=== PATIENT | female | born 1965 | race Caucasian/White ===

== ENCOUNTER 2020-09-27 15:05 | Emergency (ER) | payer BC ==
[~2020-09-27] VITALS: Ht 157.5 cm; Wt 104.3 kg
[~2020-09-27 15:05] MED LIST: CADUET 2.5 MG-1 EACH; COZAAR 25 MG TA25 M1; KEPPRA250 MG; LIPITOR10 MG; NORCO 5-325 TA1 EACH PO; PHENERGAN 25 MG25 M1 PO; TORADOL 10 MG T10 MG PO; ZOFRAN4 MG PO
[2020-09-27] MEDS ORDERED: NORVASC10 MG PO (15:27)
[2020-09-27] MEDS ORDERED: LEVO-T25 MCG PO (15:28)
[2020-09-27 17:53] LABS: ABSOLUTE BASOPHILS 0.1 thou/uL (0.0-0.2); ABSOLUTE EOSINOPHILS 0.3 thou/uL (0.0-0.7); ABSOLUTE LYMPHOCYTES 2.2 thou/uL (0.8-5.3); ABSOLUTE MONOCYTES 0.8 thou/uL (0.0-1.2); ABSOLUTE NEUTROPHILS 6.1 thou/uL (1.6-8.1); EOSINOPHILS 2.7 %; HEMATOCRIT 44.8 % (37.0-47.0); LYMPHOCYTES 23.3 %; MCH 31.5 pg (26.0-34.0); MCHC 33.5 g/dL (28.0-37.0); MCV 93.8 fL (80.0-100.0); MONOCYTES 8.2 %; MPV 8.4 fl. (7.2-11.1); NUCLEATED RBCS 0 /100WBC; PLATELET COUNT* 341 thou/uL (150-400); POLYS 64.8 %; RBC 4.77 mil/uL (4.20-5.00); RDW-CV 14.2 % (10.5-14.5); WBC 9.4 thou/uL (4.0-11.0)
[2020-09-27 18:03] LABS: CALCIUM 8.4 mg/dL (8.5-10.1); POTASSIUM 3.3 mmol/L (3.5-5.1)
[2020-09-27 18:08] LABS: TOTAL BILIRUBIN 0.5 mg/dL (<0.1-1.0); TOTAL PROTEIN 8.2 g/dL (6.4-8.2)
[2020-09-27] MEDS ORDERED: AMOXICILLIN 50500 MG PO (18:51)
[2020-09-27 19:36] VITALS: BP 121/60
--- NOTE | 2020-09-29 13:59 | EKG ---
[place] [address] ELECTROCARDIOGRAM REPORT Name: BETTY ESPINAL Room: [facility]#: [id number] Admission: 09/27/20 Attend Phys: Discharge: 09/27/20 Date of : 67 Date of Service: 09/27/20 173 Report #: [id number] THIS REPORT FOR: //name// [facility] ED Test Date: 2020-09-27 Test Time: 17:31:55 Pat Name: BETTY ESPINAL Department: Room: Gender: F Lead Carpenter: STUDENT : 1965 Requested By: Fany Bui Order Number: [id number] MD: Efe Batres Measurements Intervals [place] Rate: 93 P: 25 [place]: 161 QRS: -16 QRSD: 91 T: 11 QT: 360 QTc: 448 Interpretive Statements Sinus rhythm Borderline left axis deviation Delayed R wave progression over the right precordium Compared to ECG 10/21/2010 05:43:37 Delayed R wave progression over the right precordium is more notable Electronically Signed On 09-29-2020 13:58:58 CDT by Efe Batres [email or web address] <ELECTRONICALLY SIGNED> By: Efe Batres MD, FACC 09/29/20 1358 1731 1731 Efe Batres MD, FAC /EPI
== END 2020-09-27 19:38 | disposition home or self-care (01) ==
LOC: M.ERS 15:05
PROVIDERS: Nurse Practitioner Family
DX: H65.191 Other acute nonsuppurative otitis media, right ear (principal); H81.11 Benign paroxysmal vertigo, right ear; I10 Essential (primary) hypertension; E78.00 Pure hypercholesterolemia, unspecified; Z98.890 Other specified postprocedural states; Z90.49 Acquired absence of other specified parts of digestive tract; Z90.710 Acquired absence of both cervix and uterus

== ENCOUNTER 2020-10-14 12:04 | Inpatient (IN) | payer BC ==
[~2020-10-14] VITALS: Ht 157.5 cm; Wt 111.7 kg
[~2020-10-14 12:04] MED LIST changes: +AMOXICILLIN 50500 MG PO; +LEVO-T25 MCG PO; +NORVASC10 MG PO
[2020-10-14 12:07] VITALS: BP 113/65
[2020-10-14 12:54] LABS: ABSOLUTE BASOPHILS 0.1 thou/uL (0.0-0.2); ABSOLUTE EOSINOPHILS 0.1 thou/uL (0.0-0.7); ABSOLUTE LYMPHOCYTES 1.5 thou/uL (0.8-5.3); ABSOLUTE MONOCYTES 0.9 thou/uL (0.0-1.2); ABSOLUTE NEUTROPHILS 13.3 thou/uL (1.6-8.1); BASOPHILS 0.8 %; EOSINOPHILS 0.6 %; HEMATOCRIT 47.3 % (37.0-47.0); HEMOGLOBIN 14.8 gm/dL (12.0-15.0); LYMPHOCYTES 9.5 %; MCHC 31.4 g/dL (28.0-37.0); MCV 92.4 fL (80.0-100.0); MONOCYTES 5.6 %; MPV 7.8 fl. (7.2-11.1); NUCLEATED RBCS 0 /100WBC; PLATELET COUNT* 325 thou/uL (150-400); POLYS 83.5 %; RBC 5.12 mil/uL (4.20-5.00); RDW-CV 13.7 % (10.5-14.5); WBC 15.9 thou/uL (4.0-11.0)
[2020-10-14 13:04] LABS: CREATININE 1.1 mg/dL (0.6-1.3); POTASSIUM 3.6 mmol/L (3.5-5.1)
[2020-10-14 13:15] LABS: ALBUMIN 3.9 g/dL (3.4-5.0); TOTAL BILIRUBIN 0.6 mg/dL (<0.1-1.0); TOTAL PROTEIN 8.2 g/dL (6.4-8.2)
--- NOTE | 2020-10-14 14:08 | EKG ---
[place] [address] ELECTROCARDIOGRAM REPORT Name: KYLIE,BETTY L Room: [facility]#: [id number] Admission: 10/14/20 Attend Phys: Discharge: Date of : 67 Date of Service: 10/14/20 1248 Report #: [id number] THIS REPORT FOR: //name// [facility] ED Test Date: 2020-10-14 Test Time: 12:48:58 Pat Name: BETTY ESPINAL Department: Room: Gender: Watermaster: PETRA : 1965 Requested By: Andrés Whelan Order Number: [id number] MD: Homero Macedo Measurements Intervals [place] Rate: 87 P: 20 [place]: 165 QRS: -4 QRSD: 90 T: -6 QT: 352 QTc: 424 Interpretive Statements Sinus rhythm artifact noted Anteroseptal infarct, old Compared to ECG 09/27/2020 17:31:55 Myocardial infarct finding now present Electronically Signed On 10-14-2020 14:07:46 CDT by Homero Macedo [email or web address] <ELECTRONICALLY SIGNED> By: Homero Macedo MD, [facility] 10/14/20 1407 1248 1248 Homero Macedo MD, [facility] /EPI
[2020-10-14 17:33] LABS: URINE BILIRUBIN NEGATIVE (Negative); URINE BLOOD NEGATIVE (Negative); URINE COLOR YELLOW; URINE GLUCOSE-RANDOM NEGATIVE (Negative); URINE KETONES NEGATIVE (Negative); URINE LEUKOCYTES-REFLEX TRACE (Negative); URINE NITRITE-REFLEX NEGATIVE (Negative); URINE PROTEIN TRACE (Negative); URINE SPECIFIC GRAVITY >= 1.030 (1.005-1.030); URINE UROBILINOGEN 0.2 E.U./dl (0.2-1.0)
[2020-10-14 17:34] LABS: URINE CLARITY CLEAR
[2020-10-14 17:42] LABS: BACTERIA-REFLEX 1-9 Few /HPF (None Seen); CRYSTALS None Seen /LPF (None Seen); HYALINE CASTS 4-10 Moderate /LPF (None Seen); SQUAMOUS >10 Many /LPF (0-3); URINE RBC 0-2 Rare /HPF (0-2); URINE WBC-REFLEX 6-15 Few /HPF (0-5)
[2020-10-14 18:00] VITALS: BP 132/67
[2020-10-14 22:00] VITALS: BP 117/80
[2020-10-15 02:00] VITALS: BP 115/73
[2020-10-15 03:52] LABS: CALCIUM 7.3 mg/dL (8.5-10.1); CREATININE 1.1 mg/dL (0.6-1.3); MAGNESIUM 1.7 mg/dL (1.8-2.4); POTASSIUM 3.6 mmol/L (3.5-5.1); TOTAL BILIRUBIN 0.5 mg/dL (<0.1-1.0); TOTAL PROTEIN 6.5 g/dL (6.4-8.2)
[2020-10-15 04:32] LABS: MCH 30.8 pg (26.0-34.0); MCHC 33.6 g/dL (28.0-37.0); MCV 91.6 fL (80.0-100.0); MPV 8.2 fl. (7.2-11.1); RBC 4.04 mil/uL (4.20-5.00); RDW-CV 13.9 % (10.5-14.5); WBC 10.6 thou/uL (4.0-11.0)
[2020-10-15 04:41] LABS: HEMOGLOBIN 12.4 gm/dL (12.0-15.0)
[2020-10-15 05:47] VITALS: BP 105/49
[2020-10-15 10:00] VITALS: BP 136/78
[2020-10-15 14:00] VITALS: BP 136/69
[2020-10-15 17:17] VITALS: BP 116/64
[2020-10-15 18:00] VITALS: BP 132/84
--- NOTE | 2020-10-15 18:44 | NUR ---
PT ARRIVED FROM ER VIA BED, SHE WAS ON 2L NC SATS 97% PT IS A/OX4, PLEASANT AND COOPERATIVE, VSS. SHE HAS NO C/O PAIN OR DISCOMFORT NO N/V, PT WAS GIVEN A DINNER TRAY. SHE IS UP AD [facility] AND INDEPENT WITH ADLS.
[2020-10-16] VITALS (7 sets, daily range): BP systolic 112–141; BP diastolic 66–77
[2020-10-16 04:48] LABS: HEMOGLOBIN 11.6 gm/dL (12.0-15.0); MCH 30.3 pg (26.0-34.0); MCHC 33.1 g/dL (28.0-37.0); MCV 91.5 fL (80.0-100.0); MPV 7.9 fl. (7.2-11.1); RBC 3.82 mil/uL (4.20-5.00)
[2020-10-16 05:06] LABS: CALCIUM 7.5 mg/dL (8.5-10.1); CREATININE 0.9 mg/dL (0.6-1.3); MAGNESIUM 1.8 mg/dL (1.8-2.4); POTASSIUM 3.6 mmol/L (3.5-5.1); TOTAL BILIRUBIN 0.5 mg/dL (<0.1-1.0); TOTAL PROTEIN 6.3 g/dL (6.4-8.2)
--- NOTE | 2020-10-16 06:51 | NUR ---
PATIENT HAS SLEPT WELL THROUGHOUT THE NIGHT. VSS ON 1L 02 VIA NASAL CANNULA. MEDICATIONS GIVEN ORDERED AND CHARTED. IV IN RIGHT AC-SL. IV IN RIGHT HAND-SL. IV ABT GIVEN WITHOUT ANY ADVERSE SIDE EFFECTS NOTED. PATIENT INSTRUCTED TO USE CALL LIGHT WHEN NEEDING ASSISTANCE. HOURLY ROUNDS MADE. WILL CONTINUE WITH PLAN OF CARE AND NURSING TO MONITOR.
--- NOTE | 2020-10-16 13:52 | NUR ---
Pt is A&O. Resides at with . Independent. No DME. No hx of HH or SNF. Pt doing better. Covid negative per PCR. Anticipate dc tomorrow.
--- NOTE | 2020-10-16 15:35 | NUR ---
PT A/OX4 PLEASANT AND COOPERATIVE, PT ON ROOM AIR, HR NSR. RECLINER MOVED INTO PT ROOM PER DOCTOR REQUEST. PT HAS NO C/O PAIN OR DISCOMFORT THIS SHIFT, IV REMOVED FROM RIGHT HAND BECAUSE SHE KEPT GETTING IT CAUGHT ON THINGS.
[2020-10-17 04:00] VITALS: BP 115/66
[2020-10-17] MEDS ORDERED: LEVOFLOXACIN500 MG PO (07:36)
--- NOTE | 2020-10-17 10:37 | NUR ---
Nutrition: Pt admitted with resp failure. Seen for high BMI. Heart healthy diet, pt said she is eating well. She siad her usual wt is 230#. She follows a low Na diet at home and did not want further info on diet today. I gave her a 2gm Na menu for alternative ordering. No nutritionally significant labs. Low risk.
[2020-10-17 12:00] VITALS: BP 142/86
[2020-10-17 16:55] VITALS: BP 142/86
--- NOTE | 2020-10-17 21:35 | NUR ---
ASSUMED PT CARE AT 0730. PT IS A&O X4. ASSESSMENT COMPLETED. MEDICATIONS ADMINISTERED ORERED. LUNGS ARE CLEAR, PT IS AFEBRILE AND DENIES ANY COUGH OR CONGESTION. NEW ORDER FOR REST AND EXCERCISE PT DID WELL WITH NO O2. NEW ORDERS TO DISCHARGE TO HOME. ORDERS REVIEWED WITH PT AND ALL BELONGINGS WITH PT. SPOUSE HERE TO TRANSFER PT HOME AT APPROX 1700. HEART MONITOR REMOVED AND IV DC'D.PT VERBALIZED UNDERSTANDING OF DISCHARGE INSTRUCTIONS
== END 2020-10-17 17:45 | disposition home or self-care (01) | DRG 193 ==
LOC: M.ERS 12:04 → M.TBA-ER 14:17 → M.ORTHSURG 10-15 17:21 → M.2W 10-16 19:35
PROVIDERS: Emergency Medicine Emergency Medical Services; ADMIT Internal Medicine; ATTEND Internal Medicine
DX: J15.9 Unspecified bacterial pneumonia (principal); J96.01 Acute respiratory failure with hypoxia; R65.11 Systemic inflammatory response syndrome (SIRS) of non-infectious origin with acute organ dysfunction; I10 Essential (primary) hypertension; E78.00 Pure hypercholesterolemia, unspecified; E03.9 Hypothyroidism, unspecified; G40.909 Epilepsy, unspecified, not intractable, without status epilepticus; Z20.822 Contact with and (suspected) exposure to COVID-19; Z90.710 Acquired absence of both cervix and uterus; Z98.891 History of uterine scar from previous surgery; Z90.49 Acquired absence of other specified parts of digestive tract; Z79.899 Other long term (current) drug therapy